=== PATIENT | male | born 1960 | race Caucasian/White ===

== ENCOUNTER → 2017-05-30 | Outpatient (CLI) | payer BC ==
[2017-05-30 13:55] LABS: HEMATOCRIT 41.2 % (42-52); MEAN CELL VOLUME 95.4 fL (80-100); MEAN CORPUSCULAR HEMOGLOBIN 32.9 pg (25-34); MEAN CORPUSCULAR HGB CONC 34.5 g/dl (32-36); PLATELET COUNT 129 K/uL (130-400); PLT ESTIMATE NORMAL; RED BLOOD COUNT 4.32 M/uL (4.7-6.1); WHITE BLOOD COUNT 11.91 K/uL (4.8-10.8)
[2017-05-30 14:20] LABS: BLOOD UREA NITROGEN 15 mg/dl (7-18); BUN/CREATININE RATIO 19.4 (10-20); CALCIUM 8.9 mg/dl (8.5-10.1); CARBON DIOXIDE 30 mmol/L (21-32); CHLORIDE 110 mmol/L (98-107); CHOLESTEROL 178 mg/dl (0-200); GLUCOSE 83 mg/dl (70-99); SODIUM 142 mmol/L (136-145)
[2017-05-30 14:25] LABS: CHOLESTEROL/HDL RATIO 2.7; HDL CHOLESTEROL 66 mg/dl; LDL CHOLESTEROL CALCULATED 106 mg/dl; PROSTATE SPECIFIC ANTIGEN 0.605 ng/ml (0.000-4.000); TRIGLYCERIDES 29 mg/dl (0-150); VERY LOW DENSITY LIPOPROT CALC 6 mg/dl
== END | disposition home or self-care (01) ==
LOC: C.LAB1850 12:11
PROVIDERS: ATTEND Internal Medicine
DX: E78.5 Hyperlipidemia, unspecified (principal); Z12.5 Encounter for screening for malignant neoplasm of prostate; Z13.1 Encounter for screening for diabetes mellitus

== ENCOUNTER → 2017-06-04 | Outpatient (CLI) | payer BC ==
--- NOTE | 2017-06-04 08:01 | DIAGNOSTIC IMAGING REPORT ---
(CHEST) THORAX WITHOUT CLINICAL HISTORY: 56 years-old Male presenting with abnormal finding on imaging, history of pulmonary nodule. TECHNIQUE: Multidetector CT imaging of the chest was performed without the use of intravenous contrast. IV contrast: None. A dose lowering technique was used consistent with the principles of ALARA (as low as reasonably achievable). COMPARISON: 12/30/2014. CT DOSE (mGy.cm): The estimated cumulative dose is 266.77 mGy.cm. FINDINGS: Label Pinker topogram: Unremarkable. On soft tissue windows, normal thyroid and thoracic inlet. No axillary, supraclavicular, hilar, or mediastinal lymphadenopathy. Normal aorta. Normal heart size. No pericardial or pleural effusion. Upper abdomen normal. On lung windows, lung cyst noted at the right lung base. Previous seen noted 4 mm nodule in the lingula unchanged in appearance and size. No other focal infiltrate. Partial obstruction in the right posterior basal segmental bronchus (series 4 image 28). Remaining airways patent. On bone windows, multilevel degenerative changes. IMPRESSION: 1. Obstruction of a right posterior basal segmental bronchus. This most likely represents mucous plugging, however, follow-up CT in 3-6 months recommended to prove resolution and exclude endobronchial lesion. If this lesion persists on follow-up CT, bronchoscopy should be considered. 2. Stable 4 mm nodule in the lingula, for which no further follow-up is warranted. Electronically signed by: Dejon Izaguirre M.D. 06/04/2017 8:00 AM Dictated Date/Time: 06/04/2017 7:53 AM
== END | disposition home or self-care (01) ==
LOC: C.CTS 07:39
PROVIDERS: ATTEND Internal Medicine
DX: R91.8 Other nonspecific abnormal finding of lung field (principal)

== ENCOUNTER → 2017-11-15 | Outpatient (CLI) | payer BC ==
[~2017-11-15] MED LIST: OPTIRAY 320 IV PRN
--- NOTE | 2017-11-15 13:13 | DIAGNOSTIC IMAGING REPORT ---
CHEST CT WITH CONTRAST CT DOSE: 320.09 mGy.cm HISTORY: Follow-up pulmonary nodule. Z72.0 Tobacco use R93.8 Abnormal chest xray R93.8 Abnormal finding TECHNIQUE: Multiaxial CT images of the chest were performed following the intravenous administration of contrast. A dose lowering technique was utilized adhering to the principles of ALARA. COMPARISON: Chest CT 06/04/2017 and 12/30/2014. FINDINGS: There is a 1.6 cm hypodense lesion within the thyroid isthmus. Subcentimeter mediastinal and hilar lymph nodes do not meet CT criteria for pathologic involvement. Partial opacification of the proximal posterior basal segmental bronchus of the right lower lobe. This is improved compared the prior study and therefore is unlikely to represent an endobronchial lesion. Remaining airways are patent. No pleural effusions. No pneumothorax. A few tiny right apical blebs are noted. A 1.5 cm bleb within the base of the right lower lobe. No focal lung consolidations to suggest pneumonia. No suspicious lytic or blastic osseous lesions. The visualized liver, spleen, and adrenal glands are unremarkable. The heart is normal in size. The main pulmonary arteries are patent. Normal caliber thoracic aorta. Stable 4 mm lingular nodule. IMPRESSION: 1. Partial opacification of the proximal posterior basal segmental bronchus for the right lower lobe. This is improved compared the prior study and therefore is unlikely to represent an endobronchial lesion. 2. A 1.6 cm hypodense lesion within the thyroid isthmus. Follow-up thyroid ultrasound is recommended for further evaluation. Electronically signed by: John Pantoja M.D. 11/15/2017 1:11 PM Dictated Date/Time: 11/15/2017 12:50 PM
== END | disposition home or self-care (01) ==
LOC: C.CTS 12:26
PROVIDERS: ATTEND Internal Medicine Pulmonary Disease
DX: Z72.0 Tobacco use (principal); R91.1 Solitary pulmonary nodule; R93.8 Abnormal findings on diagnostic imaging of other specified body structures; E07.89 Other specified disorders of thyroid

== ENCOUNTER → 2018-06-03 | Outpatient (CLI) | payer BC ==
[2018-06-03 17:37] LABS: BASO % 0.6 %; BASO ABS # 0.05 K/uL (0-0.2); EOS % 1.9 %; EOS ABS # 0.15 K/uL (0-0.5); HEMATOCRIT 42.3 % (42-52); HEMOGLOBIN 14.3 g/dL (14.0-18.0); IG# 0.02 K/uL (0.00-0.02); LYMPH % 27.4 %; MEAN CELL VOLUME 94.8 fL (80-100); MEAN CORPUSCULAR HEMOGLOBIN 32.1 pg (25-34); MEAN CORPUSCULAR HGB CONC 33.8 g/dl (32-36); MEAN PLATELET VOLUME 11.7 fL (7.4-10.4); MONO % 4.5 %; MONO ABS # 0.36 K/uL (0.11-0.59); NEUT % 65.4 %; NEUT ABS # 5.24 K/uL (1.4-6.5); PLATELET COUNT 143 K/uL (130-400); RED CELL DISTRIBUTION WIDTH CV 12.9 % (11.5-14.5); RED CELL DISTRIBUTION WIDTH SD 44.8 fL (36.4-46.3); WHITE BLOOD COUNT 8.02 K/uL (4.8-10.8)
[2018-06-03 18:03] LABS: BLOOD UREA NITROGEN 17 mg/dl (7-18); CALCIUM 8.9 mg/dl (8.5-10.1); CARBON DIOXIDE 27 mmol/L (21-32); CHOLESTEROL 189 mg/dl (0-200); CREATININE 0.82 mg/dl (0.60-1.40); GLUCOSE 89 mg/dl (70-99); LDL CHOLESTEROL CALCULATED 118 mg/dl; SODIUM 140 mmol/L (136-145)
== END | disposition home or self-care (01) ==
LOC: C.LAB1850 16:20
PROVIDERS: ATTEND Internal Medicine
DX: Z12.5 Encounter for screening for malignant neoplasm of prostate (principal); Z13.1 Encounter for screening for diabetes mellitus; E78.5 Hyperlipidemia, unspecified; D72.829 Elevated white blood cell count, unspecified